=== PATIENT | male | born 1990 | race Caucasian/White ===

== ENCOUNTER 2017-07-07 11:05 | Outpatient (CLI) | payer OTHER ==
[2017-07-07 12:02] LABS: #Basophils 0.1 thou/uL (0.0-0.2); #Eosinphils 0.1 thou/uL (0.0-0.7); #Lymphocytes 1.6 thou/uL (1.20-3.40); #Monocytes 0.4 thou/uL (0.11-0.59); #Neutrophils 2.9 thou/uL (1.40-6.50); %Basophils 1.2 % (0.0-1.0); %Eosinophils 1.4 % (0.0-10.0); %Lymphocytes 32.5 % (21.0-51.0); %Neutrophils 57.9 % (42.0-75.0); Hemoglobin 14.9 g/dL (14.0-18.0); Mean Corpuscular HGB CONC 33.5 g/dL (32.0-36.0); Mean Corpuscular Hemoglobin 30.5 pg (27.0-31.0); Mean Corpuscular Volume 91.2 fl (80.0-94.0); Mean Platelet Volume 8.3 fL (7.4-10.4); Platelet Count 193 thou/uL (130-400); RBC Distribution Width 11.7 % (11.5-14.5); Red Blood Cell (RBC) Count 4.88 mill/uL (4.70-6.10)
[2017-07-07 12:43] LABS: Anion Gap 9 mmol/L (10-20); BUN (Urea Nitrogen) 12 mg/dL (8.9-20.6); Calc. Creatinine Clearance 0 mL/min (70-130); Calcium 9.4 mg/dL (7.8-10.44); Carbon Dioxide 28 mmol/L (22-29); Chloride 106 mmol/L (98-107); Estimated GFR-MDRD Greater than 90; Glucose 93 mg/dL (70-105); Potassium 4.3 mmol/L (3.5-5.1); Sodium 139 mmol/L (136-145)
== END 2017-07-07 11:06 | disposition home or self-care (01) ==
LOC: LABBT 11:05
PROVIDERS: ATTEND Surgery
DX: Z01.812 Encounter for preprocedural laboratory examination (principal); K40.90 Unilateral inguinal hernia, without obstruction or gangrene, not specified as recurrent
CPT/HCPCS: 80048; 85025

== ENCOUNTER 2017-07-17 07:30 | Day surgery (SDC) | payer OTHER ==
[2017-07-07 11:25] VITALS: BMI 29.8
[2017-07-17] MEDS ORDERED: CEFAZOLIN/Water 2 GM/20 ML SYRINGE ONE (08:22)
[2017-07-17] MEDS ORDERED: Bupivacaine/Epinephrine 0.25% 30 ML VIAL ONE (09:15)
[2017-07-17] MEDS ORDERED: Midazolam HCl 2 mg/2 ml Vial ONE (09:40)
[2017-07-17] MEDS ORDERED: Fentanyl 250 MCG/5 ML VIAL ONE (09:40)
[2017-07-17] MEDS ORDERED: Fentanyl 100 MCG/2 ML VIAL ONE (11:28)
[2017-07-17] MEDS ORDERED: HYDROcodone/Acetaminophen 5/325 mg Tablet ONE (13:30)
[2017-07-17] MEDS ORDERED: Ondansetron HCl/PF 4 MG/2 ML Vial ONE (15:49)
[2017-07-17] MEDS ORDERED: Lidocaine 1% PF 5 ML VIAL ONE (15:49)
[2017-07-17] MEDS ORDERED: PROPOFOL 200 MG/20 ML VIAL ONE (15:49)
[2017-07-17] MEDS ORDERED: Glycopyrrolate 0.2 MG/ML 5 ML SYRINGE ONE (15:49)
[2017-07-17] MEDS ORDERED: Dexamethasone 20 MG/5 ML VIAL ONE (15:49)
--- NOTE | 2017-07-18 11:37 | OP ---
DATE OF PROCEDURE: 07/17/2017 PREOPERATIVE DIAGNOSIS: Right inguinal hernia. POSTOPERATIVE DIAGNOSIS: Right inguinal hernia. PROCEDURE: Da Nish laparoscopic right inguinal hernia repair with mesh, 3D Max large. SURGEON: Dr. Galindo. ANESTHESIA: General. ESTIMATED BLOOD LOSS: Minimal. COMPLICATIONS: None. SPECIMEN: None. FINDINGS: Right inguinal hernia. TECHNIQUE: The patient was taken to the operating room and placed supine on the table. After genera l anesthetic was obtained, Arizmendi was placed and the abdomen was shaved, prepped, and draped in a ster ile fashion. Curved incision made above the umbilicus. Cautery dissected down to and score the fasc ia. Abdominal cavity entered bluntly using a Ashleigh clamp. The 12-mm balloon applied and medic al trocar was placed. High-flow pneumoperitoneum was obtained. Right and left abdominal 8 mm robot trocars were placed under direct vision. The patient was placed in Trendelenburg position and all po rts were docked to the robot. The peritoneum was taken down in the right groin and the preperitoneal space fully dissected all the way to the pubic tubercle medially, anterior superior iliac crest late rally. A 3D Max large mesh brought into the abdomen through the camera site and labeled, medial aspe ct was placed over pubic tubercle medially and the mesh laid out laterally to fully cover the indirec t, direct, and femoral components. The indirect hernia sac had been dissected high up onto the perit oneum and out of the indirect defect. There was no direct defect. 2-0 Vicryl sutures used to affix the mesh to the pubic tubercle medially and to the posterior fascia laterally. The peritoneum was re approximated using running 2-0 Stratafix. All port sites were infiltrated using local anesthetic. A ll ports were removed under camera visualization and pneumoperitoneum was let down. PDS used to clos e the fascial defect below the umbilicus. All incisions were irrigated and closed using 4-0 Monocryl . The patient was en route to recovery in stable condition. All instrument counts, needle counts, l ap counts are correct.
== END 2017-07-17 13:45 | disposition home or self-care (01) ==
LOC: SDC 07:30
PROVIDERS: ATTEND Surgery
PROC: 0YU54JZ Supplement Right Inguinal Region with Synthetic Substitute, Percutaneous Endoscopic Approach (ICD-10-PCS; principal; 2017-07-17)
DX: K40.90 Unilateral inguinal hernia, without obstruction or gangrene, not specified as recurrent (principal); F17.210 Nicotine dependence, cigarettes, uncomplicated; Z79.899 Other long term (current) drug therapy
CPT/HCPCS: C1781; J1100; J2001; J2250; J2405; J2704; J3010